=== PATIENT | female | born 1965 | race African-American/Black ===

== ENCOUNTER 2016-08-19 13:38 | Emergency (ER) | payer OTHER ==
[2016-08-19] MEDS ORDERED: NS 0.9% 1000 ML* 1,000 ML IV ONE (15:40)
[2016-08-19 16:00] LABS: Hematocrit 38 % (35-47); Hemoglobin 12.9 g/dl (12.0-16.0); Mean Corpuscular HGB Conc 34 g/dl (31-36); Mean Corpuscular Hemoglobin 32 pg (27-31); Mean Corpuscular Volume 95 fL (80-97); Mean Platelet Volume 9 um3 (7.4-10.4); Red Blood Count 4.06 10^6/ul (4.0-5.4); Red Cell Distribution Width 13 % (10.5-15); White Blood Count 2.9 10^3/ul (3.5-10.8)
[2016-08-19 16:02] LABS: Add Diff/Slide Review? Slide Review Added; Comments Flag Yes
[2016-08-19 16:21] LABS: ALT 9 U/L (7-52); AST 21 U/L (13-39); Albumin 4.2 g/dL (3.2-5.2); Alkaline Phosphatase 69 U/L (34-104); Anion Gap 4 mmol/L (2-11); BUN/Creatinine Ratio 12.2 (8-20); Blood Urea Nitrogen 9 mg/dL (6-24); C Reactive Protein < 1.00 mg/L (< 5.00); CO2 Carbon Dioxide 29 mmol/L (22-32); Calcium 10.3 mg/dL (8.6-10.3); Chloride 105 mmol/L (101-111); EGFR African American 106.4 (>60); EGFR Non-African American 82.7 (>60); Globulin 3.4 g/dL (2-4); Glucose 81 mg/dL (70-100); Potassium 3.7 mmol/L (3.5-5.0); Sodium 138 mmol/L (133-145); Total Protein 7.6 g/dL (6.4-8.9)
[2016-08-19] MEDS ORDERED: Iohexol 300* (CONTRAST) 10 ML SDV IV ONE (16:31)
--- NOTE | 2016-08-19 17:10 | RAD ---
INDICATION: Versus and tightness in throat post RIGHT thyroid lobe resection. Question hematoma, abscess, obstruction. COMPARISON: September 27, 2015 thyroid ultrasound. TECHNIQUE: Multidetector CT images skull base to lung apices with 50 mL Omnipaque 300 IV contrast. Multiplanar reformation. REPORT: Surgical clips at the RIGHT thyroid lobe resection bed. Soft tissue edema without evidence for loculated fluid collection to suggest abscess or organized hematoma. Overlying superficial soft tissue edema and minimal subcutaneous emphysema. 1.9 cm heterogeneous density nodule in the LEFT thyroid lobe corresponding with previous ultrasound finding. Negative for thoracic lymphadenopathy. Unremarkable submandibular and parotid glands. Unremarkable pharyngeal mucosal space contours as well as the hypopharynx, glottis, and visualized subglottic airway. Symmetric parapharyngeal fat. Patent bilateral internal jugular veins as well as the common, internal, and external carotid arteries. Clear visualized lung apices. No suspicious osseous lesions evident. Multilevel cervical spine degenerative spondylosis and facet joint osteoarthritis. At C3-C4 uncinate process spurring results in moderately severe LEFT foraminal stenosis. Grossly clear paranasal sinuses and mastoid air spaces. IMPRESSION: Postsurgical edema at the RIGHT thyroid lobe resection bed and overlying superficial soft tissues. No loculated fluid collection to indicate abscess or organized hematoma.
[2016-08-19 17:45] VITALS: BP 142/79
--- NOTE | 2016-08-19 20:52 | ED ---
Raphael Goncalves Erika, scribed for Stewart Valentine MD on 08/19/16 at 1510 . Throat Pain/Nasal Congestion - HPI Summary HPI Summary: Patient is a 50-year-old female presenting to the ED with a CC of throat tightness. Patient reports that she had a partial thyroidectomy on the right side of the thyroid for a benign nodule on 07/26/2016, performed by Dr. Shannon. Since then, patient has noticed an intermittently hoarse voice, and difficulty swallowing. She has had her stitches removed but has not had a follow up appointment with Dr. Shannon. On 08/16/2015, patient was eating an orange when she felt like the orange became lodged in her throat. She called Dr. Shannon's office, who stated she should come to the ED, but patient did not at that time. Currently, she denies foreign body sensation, but states a sensation of throat tightness. She denies chest tightness or a foreign body sensation in her chest. Pt states she has had PO intake without issue today. Pt also denies fever, chills, chest pain, SOB, decreased appetite, vomiting, abdominal pain, back pain , or weight loss since the surgery. - History of Current Complaint Chief Complaint: EDForeignBodyEsophag Time Seen by Provider: 08/19/16 14:48 Hx Obtained From: Patient Onset/Duration: Gradual Onset, Lasting Weeks, Still Present Severity: Moderate Associated Signs And Symptoms: Positive: FB Sensation - resolved, Hoarseness Cough: None Related History: Prior ENT Surgery - partial thyroidectomy about 3 weeks ago - Allergies/Home Medications Allergies/Adverse Reactions: Allergies Allergy/AdvReac Type Severity Reaction Status Date / Time No Known Allergies Allergy Verified 08/19/16 13:46 PMH/Surg Hx/FS Hx/Imm Hx Endocrine/Hematology History: Reports: Other Endocrine/Hematological Disorders - Mom and sister have goiter, sisters was surgically removed Denies: Hx Diabetes, Hx Anemia GI History: Denies: Hx Jaundice Sensory History: Reports: Hx Contacts or Glasses - both Denies: Hx Hearing Aid Opthamlomology History: Reports: Hx Contacts or Glasses - both - Surgical History Surgery Procedure, Year, and Place: benign breast lump biopsies x3. right bunion removal 20 years ago Hx Anesthesia Reactions: No Infectious Disease History: No Infectious Disease History: Denies: Traveled Outside the [place] in Last 30 Days - Family History Family History: Denies FHx anesthesia reaction - Social History Alcohol Use: Occasionally Substance Use Type: Reports: None Smoking Status (MU): Never Smoked Tobacco Review of Systems Negative: Fever, Chills ENT: Other - throat tightness, resolved FB sensation in throat, hoarse voice Negative: Chest Pain Negative: Shortness Of Breath Negative: Abdominal Pain, Vomiting Negative: Arthralgia, Myalgia All Other Systems Reviewed And Are Negative: Yes Physical Exam - Summary Physical Exam Summary: The patient is well-nourished in no acute distress and in no acute pain. The skin is warm and dry and skin color reflects adequate perfusion. There is slight swelling to the right side of the thyroid where the surgical scar is present. The scar is well-healed. HEENT: The head is normocephalic and atraumatic. The pupils are equal and reactive. The conjunctivae are clear and without drainage. Nares are patent and without drainage. Mouth reveals moist mucous membranes and the throat is without erythema and exudate. The external ears are intact. The ear canals are patent and without drainage. The tympanic membranes are intact. Neck is supple with full range of motion and non-tender. There are no carotid bruits. There is no neck vein distension. Respiratory: Chest is non-tender. Lungs are clear to auscultation and breath sounds are symmetrical and equal. Pt's voice is hoarse but there is no stridor. Cardiovascular: Heart is regular rate and rhythm. There is no murmur or rub auscultated. There is no peripheral edema. Abdomen: The abdomen is soft and non-tender. There are normal bowel sounds heard in all four quadrants and there is no organomegaly palpated. Musculoskeletal: There is no back pain noted. Extremities are non-tender with full range of motion. There is good capillary refill. There is no peripheral edema or calf tenderness elicited. Neurological: Patient is alert and oriented to person, place and time. The patient has symmetrical motor strength in all four extremities. Cranial nerves are grossly intact. Psychiatric: The patient has an appropriate affect and does not exhibit any anxiety or depression. Triage Information Reviewed: Yes Vital Signs On Initial Exam: Initial Vitals Temp Pulse Resp BP Pulse Ox 98.7 F 64 18 155/93 100 08/19/16 13:46 08/19/16 13:46 08/19/16 13:46 08/19/16 13:46 08/19/16 13:46 Vital Signs Reviewed: Yes Diagnostics - Vital Signs Vital Signs Temp Pulse Resp BP Pulse Ox 08/19/16 13:46 98.7 F 64 18 155/93 100 - Laboratory Lab Results: Lab Results 08/19/16 08/19/16 08/19/16 Range/Units 15:47 15:47 15:47 WBC 2.9 L (3.5-10.8) 10^3/ul RBC 4.06 (4.0-5.4) 10^6/ul Hgb 12.9 (12.0-16.0) g/dl Hct 38 (35-47) % MCV 95 (80-97) fL MCH 32 H (27-31) pg MCHC 34 (31-36) g/dl RDW 13 (10.5-15) % Plt Count 220 (150-450) 10^3/ul MPV 9 (7.4-10.4) um3 Neut % (Auto) 51.0 (38-83) % Lymph % (Auto) 40.0 (25-47) % Dickenson % (Auto) 5.3 (1-9) % Eos % (Auto) 2.7 (0-6) % Baso % (Auto) 1.0 (0-2) % Absolute Neuts (auto) 1.5 (1.5-7.7) 10^3/ul Absolute Lymphs (auto) 1.2 (1.0-4.8) 10^3/ul Absolute Monos (auto) 0.2 (0-0.8) 10^3/ul Absolute Eos (auto) 0.1 (0-0.6) 10^3/ul Absolute Basos (auto) 0 (0-0.2) 10^3/ul Absolute Nucleated RBC 0 10^3/ul Nucleated RBC % 0.1 Sodium 138 (133-145) mmol/L Potassium 3.7 (3.5-5.0) mmol/L Chloride 105 (101-111) mmol/L Carbon Dioxide 29 (22-32) mmol/L Anion Gap 4 (2-11) mmol/L BUN 9 (6-24) mg/dL Creatinine 0.74 (0.51-0.95) mg/dL Est GFR ( Amer) 106.4 (>60) Est GFR (Non-Af Amer) 82.7 (>60) BUN/Creatinine Ratio 12.2 (8-20) Glucose 81 (70-100) mg/dL Lactic Acid 0.6 (0.5-2.0) mmol/L Calcium 10.3 (8.6-10.3) mg/dL Total Bilirubin 0.60 (0.2-1.0) mg/dL AST 21 (13-39) U/L ALT 9 (7-52) U/L Alkaline Phosphatase 69 (34-104) U/L C-Reactive Protein < 1.00 (< 5.00) mg/L Total Protein 7.6 (6.4-8.9) g/dL Albumin 4.2 (3.2-5.2) g/dL Globulin 3.4 (2-4) g/dL Albumin/Globulin Ratio 1.2 (1-3) Result Diagrams: 08/19/16 15:47 08/19/16 15:47 Lab Statement: Any lab studies that have been ordered have been reviewed, and results considered in the medical decision making process. - CT Soft Tissue Neck CT CT Interpretation Completed By: Radiologist - IMPRESSION: Postsurgical edema at the RIGHT thyroid lobe resection bed and overlying superficial soft tissues. No loculated fluid collection to indicate abscess or organized hematoma. Re-Evaluation - Re-Evaluation First Eval Re-Evaluation Time: 15:37 Comment: Discussed the plan of action. Pt agrees with the plan Second Eval Re-Evaluation Time: 17:15 Comment: Discussed Neck CT results and plan of care. Pt's voice sounds improved EENT Course/Dx - Course Assessment/Plan: Patient comes in 3 weeks post-operative thyroid resection. There is concern for post-operative hematoma, abscess, or obstruction. The case was discussed with Dr. Shannon who recommended contrasted CT. Results which just revealed post-operative changes, with no fluid collection. Incidental low white count found. Discussed results with pt who will follow up with Dr. Allen and Dr. Shannon. - Differential Diagnoses Differential Diagnoses: Epiglottitis, Other - abscess, hematoma, - Diagnoses Provider Diagnoses: Hoarseness, thyroid resection, Leukopenia - Provider Notifications Discussed Care of Patient with: Dr. Costa (surgery) at 15:05 - discussed patient care. will further discuss with Dr. Shannon as well. Dr. Shannon (surgery ) at 15:25 - States hoarseness post-operatively is not abnormal as it can take time to heal. With a sensation of tightness this far out, she recommends soft tissue CT with contrast. Discharge - Discharge Plan Condition: Stable Disposition: HOME Referrals: Ginger Shannon MD [Medical Doctor] - Latisha Allen MD [Primary Care Provider] - Additional Instructions: As we discussed, you have a low white blood cell count. Please follow up with Dr. Allen regarding this. Also please follow up with Dr. Shannon. The documentation as recorded by the Raphael sandoval Erika accurately reflects the service I personally performed and the decisions made by me, Stewart Valentine MD.
== END 2016-08-19 17:47 | disposition home or self-care (01) ==
LOC: ED 13:38
DX: R49.0 Dysphonia (principal); D72.819 Decreased white blood cell count, unspecified; Z98.890 Other specified postprocedural states
CPT/HCPCS: 36415; 70491; 80053; 83605; 85025; 86140; 96360; 99282; Q9967